=== PATIENT | female | born 1935 | race Caucasian/White ===

== ENCOUNTER → 2023-07-08 12:59 | Outpatient (REF) | payer OTHER, SELFPAY | LOC: WOUND 12:59 | PROVIDERS: ATTENDING PHYSICIAN Surgery; FAMILY PHYSICIAN Internal Medicine | DX: I70.248 Atherosclerosis of native arteries of left leg with ulceration of other part of lower leg (principal); L97.822 Non-pressure chronic ulcer of other part of left lower leg with fat layer exposed; I87.2 Venous insufficiency (chronic) (peripheral); I48.0 Paroxysmal atrial fibrillation; N18.31 Chronic kidney disease, stage 3a | CPT/HCPCS: 11042; 99204 ==

== ENCOUNTER → 2023-07-09 10:51 | Outpatient (REF) | payer OTHER, SELFPAY | LOC: RAD 10:51 | PROVIDERS: ATTENDING PHYSICIAN Surgery; FAMILY PHYSICIAN Internal Medicine | DX: I70.248 Atherosclerosis of native arteries of left leg with ulceration of other part of lower leg (principal); I73.9 Peripheral vascular disease, unspecified | CPT/HCPCS: 93922; 93925 ==

== ENCOUNTER → 2023-07-15 14:33 | Outpatient (REF) | payer OTHER, SELFPAY | LOC: WOUND 14:33 | PROVIDERS: ATTENDING PHYSICIAN Surgery; FAMILY PHYSICIAN Internal Medicine | DX: L97.822 Non-pressure chronic ulcer of other part of left lower leg with fat layer exposed (principal); I73.9 Peripheral vascular disease, unspecified; I87.2 Venous insufficiency (chronic) (peripheral); I48.0 Paroxysmal atrial fibrillation; N18.31 Chronic kidney disease, stage 3a | CPT/HCPCS: 11042 ==

== ENCOUNTER → 2023-07-19 13:30 | Outpatient (REF) | payer OTHER, SELFPAY | LOC: HWRAD 13:30 | PROVIDERS: ATTENDING PHYSICIAN Surgery; FAMILY PHYSICIAN Internal Medicine | DX: I70.248 Atherosclerosis of native arteries of left leg with ulceration of other part of lower leg (principal); I87.2 Venous insufficiency (chronic) (peripheral) | CPT/HCPCS: 93970 ==

== ENCOUNTER → 2023-07-22 14:47 | Outpatient (REF) | payer OTHER, SELFPAY | LOC: WOUND 14:47 | PROVIDERS: ATTENDING PHYSICIAN Surgery; FAMILY PHYSICIAN Internal Medicine | DX: L97.822 Non-pressure chronic ulcer of other part of left lower leg with fat layer exposed (principal); I73.9 Peripheral vascular disease, unspecified; I87.2 Venous insufficiency (chronic) (peripheral); I48.0 Paroxysmal atrial fibrillation; N18.31 Chronic kidney disease, stage 3a | CPT/HCPCS: 11042 ==

== ENCOUNTER → 2023-07-24 14:58 | Outpatient (REF) | payer OTHER, SELFPAY | LOC: WOUND 14:58 | PROVIDERS: ATTENDING PHYSICIAN Surgery; FAMILY PHYSICIAN Internal Medicine | DX: L97.822 Non-pressure chronic ulcer of other part of left lower leg with fat layer exposed (principal); I73.9 Peripheral vascular disease, unspecified; I87.2 Venous insufficiency (chronic) (peripheral); I48.0 Paroxysmal atrial fibrillation; N18.31 Chronic kidney disease, stage 3a | CPT/HCPCS: 29580 ==

== ENCOUNTER → 2023-07-29 14:11 | Outpatient (REF) | payer OTHER, SELFPAY | LOC: WOUND 14:11 | PROVIDERS: ATTENDING PHYSICIAN Surgery; FAMILY PHYSICIAN Internal Medicine | DX: L97.822 Non-pressure chronic ulcer of other part of left lower leg with fat layer exposed (principal); I73.9 Peripheral vascular disease, unspecified; I87.2 Venous insufficiency (chronic) (peripheral); I48.0 Paroxysmal atrial fibrillation; N18.31 Chronic kidney disease, stage 3a | CPT/HCPCS: 11042 ==

== ENCOUNTER → 2023-08-05 14:20 | Outpatient (REF) | payer OTHER, SELFPAY | LOC: WOUND 14:20 | PROVIDERS: ATTENDING PHYSICIAN Surgery; FAMILY PHYSICIAN Internal Medicine | DX: L97.822 Non-pressure chronic ulcer of other part of left lower leg with fat layer exposed (principal); I73.9 Peripheral vascular disease, unspecified; I87.2 Venous insufficiency (chronic) (peripheral); I48.0 Paroxysmal atrial fibrillation; N18.31 Chronic kidney disease, stage 3a | CPT/HCPCS: 11042 ==

== ENCOUNTER → 2023-08-12 14:19 | Outpatient (REF) | payer OTHER, SELFPAY | LOC: WOUND 14:19 | PROVIDERS: ATTENDING PHYSICIAN Surgery; FAMILY PHYSICIAN Internal Medicine | DX: L97.822 Non-pressure chronic ulcer of other part of left lower leg with fat layer exposed (principal); I73.9 Peripheral vascular disease, unspecified; I87.2 Venous insufficiency (chronic) (peripheral); I48.0 Paroxysmal atrial fibrillation; N18.31 Chronic kidney disease, stage 3a | CPT/HCPCS: 11042 ==

== ENCOUNTER → 2023-08-14 14:28 | Outpatient (REF) | payer OTHER, SELFPAY | LOC: WOUND 14:28 | PROVIDERS: ATTENDING PHYSICIAN Surgery; FAMILY PHYSICIAN Internal Medicine | DX: L97.822 Non-pressure chronic ulcer of other part of left lower leg with fat layer exposed (principal); I73.9 Peripheral vascular disease, unspecified; I87.2 Venous insufficiency (chronic) (peripheral); I48.0 Paroxysmal atrial fibrillation; N18.31 Chronic kidney disease, stage 3a | CPT/HCPCS: 29580 ==

== ENCOUNTER → 2023-08-19 14:34 | Outpatient (REF) | payer OTHER, SELFPAY | LOC: WOUND 14:34 | PROVIDERS: ATTENDING PHYSICIAN Surgery; FAMILY PHYSICIAN Internal Medicine | DX: L97.822 Non-pressure chronic ulcer of other part of left lower leg with fat layer exposed (principal); L97.412 Non-pressure chronic ulcer of right heel and midfoot with fat layer exposed; I73.9 Peripheral vascular disease, unspecified; I87.2 Venous insufficiency (chronic) (peripheral); I48.0 Paroxysmal atrial fibrillation; N18.31 Chronic kidney disease, stage 3a | CPT/HCPCS: 99213 ==

== ENCOUNTER 2023-08-27 06:55 | Day surgery (SDC) | payer OTHER, SELFPAY ==
[2023-08-22 13:54] VITALS: BMI 36.3
[2023-08-22 14:24] LABS: % Basophils 0.8 % (0-2); % Immature Granulocytes 0.3 % (0-0.5); % Lymphocytes 17.1 % (20.5-51.1); % Monocytes 8.6 % (1.7-9.3); % Neutrophils 68.2 % (42.2-75.2); Absolute Basophils 0.1 10^3/uL (0-0.2); Absolute Eosinophils 0.3 10^3/uL (0-0.7); Absolute Lymphocytes 1.1 10^3/uL (1.2-3.4); Absolute Monocytes 0.6 10^3/uL (0.1-0.6); Absolute Neutrophils 4.4 10^3/uL (1.4-6.5); Hematocrit 31.7 % (37.0-47.0); Hemoglobin 9.7 g/dL (12.0-16.0); Mean Corp Hgb Conc. 30.6 g/dL (33.0-37.0); Mean Corpuscular Hgb 28.7 pg (27.0-31.0); Mean Corpuscular Volume 93.8 fL (81.0-99.0); Mean Platelet Volume 8.5 fL (7.4-10.4); Nucleated Red Blood Cells % 0 %; Platelet Count 233 10^3/uL (130-400); Red Blood Cell Count 3.38 10^6/uL (4.20-5.40); White Blood Cell Count 6.4 10^3/uL (4.8-10.8)
[2023-08-22 14:35] LABS: APTT 41.7 Sec (23.4-35.0)
[2023-08-22 14:53] LABS: INR 1.79; PT 20.9 Sec (11.4-14.6)
[2023-08-22 15:18] LABS: Blood Urea Nitrogen 25 mg/dl (7-17); Calcium 9.8 mg/dl (8.4-10.2); Carbon Dioxide 19 mmol/L (22-30); Chloride 108 mmol/L (98-107); Estimated Creatinine Clearance 22 ml/min; Glucose 107 mg/dl (70-99); Potassium 4.3 mmol/L (3.5-5.1); Sodium 138 mmol/L (135-145); eGFR 26.93
--- NOTE | 2023-08-22 15:37 | PTCARENOTE ---
Hgb 9.7 and INR 1.79 both collected today; Renea at 's office was notified.
[2023-08-27] VITALS (20 sets, daily range): BP systolic 12–155; BP diastolic 47–96
--- NOTE | 2023-08-27 08:35 | W.SUR.PREOP ---
Pre-Operative Surgical Note
-
I have examined this patient prior to the performance of the scheduled procedure.
The patient's condition is unchanged from the time of the current History and
Physical and the patient is able to undergo the scheduled procedure.
--- NOTE | 2023-08-27 09:24 | W.IMMPOSTOP ---
Surgical Immed Post Op Note
-
Primary Surgeon: Dr. Andre Ochoa III, MD
Assisting Surgeon: Dr. Everett Spicer MD, PhD (PGY-1)
Pre-op Diagnosis: Chronic venous insufficiency with poorly healing wounds on left lower extremity sargent and right lower extremity foot
Post-op Diagnosis: Chronic venous insufficiency with poorly healing wounds on left lower extremity sargent and right lower extremity foot
Procedure Performed: Diagnostic arteriogram
Anesthesia Type: MAC
Specimen / Cultures: None
Estimated Blood Loss: Minimal
Complications: None
Operative Findings: The patient was brought to the OR and placed in the supine position. Following anesthesia, the patient was prepped and draped in usual sterile fashion. Ultrasound guidance was used to identify the right common femoral artery.
C-arm was used to identify the inferior and superior borders of the femoral head, which were marked at the skin level. Micropuncture needle was used to access the right common femoral artery. This was upsized to a 5-martiniquais sheath over a [employer] Stores[employer]
wire. Cano's hook catheter was advanced into the distal abdominal aorta-iliac bifurcation over wire. The contralateral iliofemoral system was selection. Diagnostic arteriogram demonstrated a patent left iliofemoral system and left SFA and
profunda arteries. There was some area of mild focal narrowing in the proximal left AT artery, but good three vessel run off. The Cano's hook catheter was removed and a diagnostic arteriogram of the right lower extremity vessels was performed
through the 5-martiniquais sheath. The right iliofemoral system was patent, as well as the right SFA and profunda arteries. Distally, there were some areas of focal stenosis in the proximal right AT artery. There was 2 vessel run off (AT and peroneal) as
the right PT narrowed and occluded distally. However, this area was supplied by collateral retrograde flow from the dorsalis pedis. At the conclusion of the case, the 5-martiniquais sheath was removed and manual occlusive pressure was held for 20 minutes.
Doppler pulses were noted in DP/PT bilaterally. The patient was transferred to the PACU in stable condition.
--- NOTE | 2023-08-27 10:34 | TRANSFER ---
Patient transferred back to senior laboratory technician. Bedside rt groin check and B/L lower extremity pulses checked and present with Doppler. Report to Mike. Carolina Oswald RN BSN.
--- NOTE | 2023-08-27 12:54 | OR.RPT ---
Operative Report
Operative Report
Date of Operation: 08/27/2023
Pre Op Diagnosis:
1.) Nonhealing left lower extremity wounds
2.) New right dorsal foot wound
Post Op Diagnosis:
1.) Nonhealing left lower extremity wounds
2.) New right dorsal foot wound
Procedure:
1.) Selective catheterization of second-order lower extremity artery
2.) Diagnostic aortobiiliac arteriogram
3.) Diagnostic BILATERAL lower extremity arteriograms
4.) Ultrasound-guided percutaneous access to the right common femoral artery
Surgeon: Andre Ochoa III, MD
Parts Delivery Driver: Everett Spicer MD PhD, PGY1
Anesthesia: Sedation with local
Complications: None
Estimated Blood Loss: Less than 20 cc
History and Indications for Procedure: 87-year-old female with nonhealing bilateral lower extremity wounds.
Procedure in Detail: Penny Lacus was correctly identified and placed supine on the operating table. After adequate induction of anesthesia the bilateral groins were prepped and draped in the usual sterile fashion. A timeout was performed with the
nursing and anesthesia staff confirming the patient's identity as well as the nature and laterality of the procedure.
The right common femoral artery was identified under ultrasound guidance. The artery was patent. The superior and inferior aspects of the femoral head were identified with radiographic guidance and marked at the skin level. The proposed puncture
site was infiltrated with local anesthesia. We saved a copy of the ultrasound image to the medical record. Under ultrasound guidance we accessed the right common femoral artery with a micropuncture needle and upsized to a 5 Fr sheath over a Nuikuson
wire. The wire and a Shepheremotion.me hook flush catheter were advanced into the distal abdominal aorta and a diagnostic aorto-biiliac arteriogram was performed:
AORTO-ILIAC ARTERIOGRAM:
Aorta: Patent with no significant stenosis identified
Right common iliac artery: Patent with no significant stenosis identified
Right external iliac artery: Patent with no significant stenosis identified
Left common iliac artery: Patent with no significant stenosis identified
Left external iliac artery: Patent with no significant stenosis identified
Under roadmap guidance using a Glidewire and the CipherMax hook catheter we selected the left common iliac artery and then the external iliac artery. A catheter was tracked up and over the aortic bifurcation and placed in the left common femoral
artery. A diagnostic left lower extremity arteriogram was then performed which demonstrated the following:
LEFT LOWER EXTREMITY:
Common femoral artery: Patent with no significant stenosis identified
Profunda femoral artery: Patent with no significant stenosis identified
Superficial femoral artery: Scattered calcification. Patent with no significant stenosis identified
Popliteal artery: Scattered calcification. Patent with no significant stenosis identified
Anterior tibial artery: Patent. Mild focal stenosis proximally. Widely patent distally with no stenosis identified.
Tibioperoneal trunk: Patent with no significant stenosis identified
Peroneal artery: Diminutive but patent to the ankle
Posterior tibial artery: Diffusely calcified. Patent. Mid to distal artery with focal scattered segmental stenoses.
Satisfied with this diagnostic result I then pulled the catheter from the sheath. A runoff arteriogram of the right lower extremity was then performed through the sheath.
RIGHT LOWER EXTREMITY:
Common femoral artery: Patent with no significant stenosis identified
Profunda femoral artery: Patent with no significant stenosis identified
Superficial femoral artery: Scattered calcification.Patent with no significant stenosis identified
Popliteal artery: Scattered calcification.Patent with no significant stenosis identified
Anterior tibial artery: Patent. Focal areas of high-grade segmental stenosis identified in the distal anterior tibial near the ankle
Tibioperoneal trunk: Patent with no significant stenosis identified
Peroneal artery: Patent.
Posterior tibial artery: Patent proximally and mid. Occluded distally. Retrograde filling of the plantar arteries is identified through a patent pedal arch.
The patient tolerated the procedure well and was taken to the recovery area in stable condition.
Attestation: I was present and responsible for the entire procedure.
Signed:
Andre Ochoa III, MD
[facility] Surgery
[phone] (swnk)
== END 2023-08-27 16:00 | disposition home or self-care (01) ==
LOC: CATH 06:55
PROVIDERS: ATTENDING PHYSICIAN Surgery Vascular Surgery; FAMILY PHYSICIAN Internal Medicine; OTHER PHYSICIAN Internal Medicine
DX: I70.202 Unspecified atherosclerosis of native arteries of extremities, left leg (principal); I87.2 Venous insufficiency (chronic) (peripheral); I70.209 Unspecified atherosclerosis of native arteries of extremities, unspecified extremity
CPT/HCPCS: 36246; 75625; 75716; 36415; 80048; 85025; 85610; 85730; 93005; C1769; C1894; Q9967

== ENCOUNTER → 2023-09-02 14:24 | Outpatient (REF) | payer OTHER, SELFPAY | LOC: WOUND 14:24 | PROVIDERS: ATTENDING PHYSICIAN Surgery; FAMILY PHYSICIAN Internal Medicine | DX: L97.822 Non-pressure chronic ulcer of other part of left lower leg with fat layer exposed (principal); L97.412 Non-pressure chronic ulcer of right heel and midfoot with fat layer exposed; I73.9 Peripheral vascular disease, unspecified; I87.2 Venous insufficiency (chronic) (peripheral); I48.0 Paroxysmal atrial fibrillation; N18.31 Chronic kidney disease, stage 3a | CPT/HCPCS: 11042 ==

== ENCOUNTER → 2023-09-10 14:03 | Outpatient (REF) | payer OTHER, SELFPAY | LOC: WOUND 14:03 | PROVIDERS: ATTENDING PHYSICIAN Surgery; FAMILY PHYSICIAN Internal Medicine | DX: L97.822 Non-pressure chronic ulcer of other part of left lower leg with fat layer exposed (principal); L97.412 Non-pressure chronic ulcer of right heel and midfoot with fat layer exposed; I73.9 Peripheral vascular disease, unspecified; I87.2 Venous insufficiency (chronic) (peripheral); I48.0 Paroxysmal atrial fibrillation; N18.31 Chronic kidney disease, stage 3a | CPT/HCPCS: 11042 ==

== ENCOUNTER → 2023-09-16 14:39 | Outpatient (REF) | payer OTHER, SELFPAY | LOC: WOUND 14:39 | PROVIDERS: ATTENDING PHYSICIAN Surgery; FAMILY PHYSICIAN Internal Medicine | DX: L97.822 Non-pressure chronic ulcer of other part of left lower leg with fat layer exposed (principal); L97.412 Non-pressure chronic ulcer of right heel and midfoot with fat layer exposed; I73.9 Peripheral vascular disease, unspecified; I87.2 Venous insufficiency (chronic) (peripheral); I48.0 Paroxysmal atrial fibrillation; N18.31 Chronic kidney disease, stage 3a | CPT/HCPCS: 29580 ==

== ENCOUNTER → 2023-09-24 14:33 | Outpatient (REF) | payer OTHER, SELFPAY | LOC: WOUND 14:33 | PROVIDERS: ATTENDING PHYSICIAN Surgery; FAMILY PHYSICIAN Internal Medicine | DX: L97.822 Non-pressure chronic ulcer of other part of left lower leg with fat layer exposed (principal); L97.412 Non-pressure chronic ulcer of right heel and midfoot with fat layer exposed; I73.9 Peripheral vascular disease, unspecified; I87.2 Venous insufficiency (chronic) (peripheral); I48.0 Paroxysmal atrial fibrillation; N18.31 Chronic kidney disease, stage 3a | CPT/HCPCS: 29581; 99213 ==

== ENCOUNTER → 2023-09-26 12:01 | Outpatient (REF) | payer OTHER, SELFPAY | LOC: WOUND 12:01 | PROVIDERS: ATTENDING PHYSICIAN Surgery; FAMILY PHYSICIAN Internal Medicine | DX: L97.822 Non-pressure chronic ulcer of other part of left lower leg with fat layer exposed (principal); L97.412 Non-pressure chronic ulcer of right heel and midfoot with fat layer exposed; I73.9 Peripheral vascular disease, unspecified; I87.2 Venous insufficiency (chronic) (peripheral) | CPT/HCPCS: 29581 ==

== ENCOUNTER → 2023-10-01 14:16 | Outpatient (REF) | payer OTHER, SELFPAY | LOC: WOUND 14:16 | PROVIDERS: ATTENDING PHYSICIAN Surgery; FAMILY PHYSICIAN Internal Medicine | DX: L97.822 Non-pressure chronic ulcer of other part of left lower leg with fat layer exposed (principal); L97.412 Non-pressure chronic ulcer of right heel and midfoot with fat layer exposed; I73.9 Peripheral vascular disease, unspecified; I87.2 Venous insufficiency (chronic) (peripheral); I48.0 Paroxysmal atrial fibrillation; N18.31 Chronic kidney disease, stage 3a | CPT/HCPCS: 11042 ==

== ENCOUNTER → 2023-10-08 14:27 | Outpatient (REF) | payer OTHER, SELFPAY | LOC: WOUND 14:27 | PROVIDERS: ATTENDING PHYSICIAN Surgery | DX: L97.822 Non-pressure chronic ulcer of other part of left lower leg with fat layer exposed (principal); L97.412 Non-pressure chronic ulcer of right heel and midfoot with fat layer exposed; I73.9 Peripheral vascular disease, unspecified; I87.2 Venous insufficiency (chronic) (peripheral) | CPT/HCPCS: 11042; 29580 ==

== ENCOUNTER → 2023-10-14 14:36 | Outpatient (REF) | payer OTHER, SELFPAY | LOC: WOUND 14:36 | PROVIDERS: ATTENDING PHYSICIAN Surgery; FAMILY PHYSICIAN Internal Medicine | DX: L97.822 Non-pressure chronic ulcer of other part of left lower leg with fat layer exposed (principal); L97.412 Non-pressure chronic ulcer of right heel and midfoot with fat layer exposed; L73.9 Follicular disorder, unspecified; L87.2 Elastosis perforans serpiginosa; I48.0 Paroxysmal atrial fibrillation; N18.31 Chronic kidney disease, stage 3a | CPT/HCPCS: 11042; 29580 ==

== ENCOUNTER → 2023-10-23 13:51 | Outpatient (REF) | payer OTHER, SELFPAY | LOC: WOUND 13:51 | PROVIDERS: ATTENDING PHYSICIAN Surgery; FAMILY PHYSICIAN Internal Medicine | DX: L97.822 Non-pressure chronic ulcer of other part of left lower leg with fat layer exposed (principal); L97.412 Non-pressure chronic ulcer of right heel and midfoot with fat layer exposed; I73.9 Peripheral vascular disease, unspecified; I87.2 Venous insufficiency (chronic) (peripheral); I48.0 Paroxysmal atrial fibrillation; N18.31 Chronic kidney disease, stage 3a | CPT/HCPCS: 29580 ==

== ENCOUNTER → 2023-10-29 14:13 | Outpatient (REF) | payer OTHER, SELFPAY | LOC: WOUND 14:13 | PROVIDERS: ATTENDING PHYSICIAN Surgery | DX: L97.822 Non-pressure chronic ulcer of other part of left lower leg with fat layer exposed (principal); L97.412 Non-pressure chronic ulcer of right heel and midfoot with fat layer exposed; I73.9 Peripheral vascular disease, unspecified; I87.2 Venous insufficiency (chronic) (peripheral); I48.0 Paroxysmal atrial fibrillation; N18.31 Chronic kidney disease, stage 3a | CPT/HCPCS: 11042 ==

== ENCOUNTER → 2023-11-05 14:21 | Outpatient (REF) | payer OTHER, SELFPAY | LOC: WOUND 14:21 | PROVIDERS: ATTENDING PHYSICIAN Surgery; FAMILY PHYSICIAN Internal Medicine | DX: L97.822 Non-pressure chronic ulcer of other part of left lower leg with fat layer exposed (principal); L97.412 Non-pressure chronic ulcer of right heel and midfoot with fat layer exposed; I73.9 Peripheral vascular disease, unspecified; I87.2 Venous insufficiency (chronic) (peripheral); I48.0 Paroxysmal atrial fibrillation; N18.31 Chronic kidney disease, stage 3a | CPT/HCPCS: 99213 ==

== ENCOUNTER → 2023-11-12 14:15 | Outpatient (REF) | payer OTHER, SELFPAY | LOC: WOUND 14:15 | PROVIDERS: ATTENDING PHYSICIAN Surgery; FAMILY PHYSICIAN Internal Medicine | DX: L97.822 Non-pressure chronic ulcer of other part of left lower leg with fat layer exposed (principal); L97.412 Non-pressure chronic ulcer of right heel and midfoot with fat layer exposed; I73.9 Peripheral vascular disease, unspecified; I87.2 Venous insufficiency (chronic) (peripheral); I48.0 Paroxysmal atrial fibrillation; N18.31 Chronic kidney disease, stage 3a | CPT/HCPCS: 11042 ==

== ENCOUNTER → 2023-11-19 14:16 | Outpatient (REF) | payer OTHER, SELFPAY | LOC: WOUND 14:16 | PROVIDERS: ATTENDING PHYSICIAN Surgery; FAMILY PHYSICIAN Internal Medicine | DX: L97.822 Non-pressure chronic ulcer of other part of left lower leg with fat layer exposed (principal); L97.412 Non-pressure chronic ulcer of right heel and midfoot with fat layer exposed; I73.9 Peripheral vascular disease, unspecified; I87.2 Venous insufficiency (chronic) (peripheral); I48.0 Paroxysmal atrial fibrillation; N18.31 Chronic kidney disease, stage 3a | CPT/HCPCS: 99212 ==

== ENCOUNTER → 2023-12-10 14:30 | Outpatient (REF) | payer OTHER, SELFPAY | LOC: WOUND 14:30 | PROVIDERS: ATTENDING PHYSICIAN Surgery; FAMILY PHYSICIAN Internal Medicine | DX: L97.822 Non-pressure chronic ulcer of other part of left lower leg with fat layer exposed (principal); L97.412 Non-pressure chronic ulcer of right heel and midfoot with fat layer exposed; I73.9 Peripheral vascular disease, unspecified; I87.2 Venous insufficiency (chronic) (peripheral); I48.0 Paroxysmal atrial fibrillation; N18.31 Chronic kidney disease, stage 3a | CPT/HCPCS: 99212 ==

== ENCOUNTER → 2023-12-31 14:21 | Outpatient (REF) | payer OTHER, SELFPAY | LOC: WOUND 14:21 | PROVIDERS: ATTENDING PHYSICIAN Surgery; FAMILY PHYSICIAN Internal Medicine | DX: L97.822 Non-pressure chronic ulcer of other part of left lower leg with fat layer exposed (principal); L97.412 Non-pressure chronic ulcer of right heel and midfoot with fat layer exposed; I73.9 Peripheral vascular disease, unspecified; I87.2 Venous insufficiency (chronic) (peripheral); I48.0 Paroxysmal atrial fibrillation; N18.31 Chronic kidney disease, stage 3a | CPT/HCPCS: 99212 ==

== ENCOUNTER 2024-01-07 08:07 | Day surgery (SDC) | payer OTHER, SELFPAY ==
[2024-01-07] VITALS (20 sets, daily range): BP systolic 91–149; BP diastolic 53–94; BMI 37.8
[2024-01-07 08:35] LABS: Hematocrit 28.8 % (37.0-47.0); Hemoglobin 9.2 g/dL (12.0-16.0); Mean Corp Hgb Conc. 31.9 g/dL (33.0-37.0); Mean Corpuscular Hgb 29.4 pg (27.0-31.0); Platelet Count 191 10^3/uL (130-400); Red Blood Cell Count 3.13 10^6/uL (4.20-5.40); Red Cell Dist. Width 15.2 % (11.5-14.5); White Blood Cell Count 7.5 10^3/uL (4.8-10.8)
[2024-01-07 08:46] LABS: INR 1.18; PT 14.8 Sec (11.4-14.6)
[2024-01-07 08:46] LABS: Blood Urea Nitrogen 29 mg/dl (7-17); Calcium 9.3 mg/dl (8.4-10.2); Carbon Dioxide 20 mmol/L (22-30); Chloride 107 mmol/L (98-107); Glucose 93 mg/dl (70-99); Potassium 4.4 mmol/L (3.5-5.1); Sodium 138 mmol/L (135-145); eGFR 21.04
[2024-01-07 08:47] LABS: APTT 29.7 Sec (23.4-35.0)
[2024-01-07] MEDS: NSS 1000 IV (13:05)
--- NOTE | 2024-01-07 15:12 | OR.RPT ---
Operative Report
Operative Report
Date of Operation: 01/07/2024
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
Procedure:
1.) Intravascular lithotripsy to right dorsalis pedis artery and anterior tibial artery (3 mm x 80 mm E8 shockwave balloon)
2.) Balloon angioplasty of right dorsalis pedis artery (2.5 mm x 40 mm angioplasty balloon)
3.) Diagnostic aortobiiliac arteriogram
4.) Diagnostic right lower extremity arteriogram
5.) Ultrasound-guided percutaneous access to the left common femoral artery
Surgeon: Andre Ochoa III, MD
Test Engineering Manager: Sepideh Juarez MD PGY-8
Anesthesia: Sedation with local
Fluoroscopy:
36.6 min
173 mGy
57.09 Gy.cm2
Complications: None
Estimated Blood Loss: 20 cc
History and Indications for Procedure: 88-year-old female with chronic limb threatening ischemia of the right lower extremity manifested by a nonhealing dorsal foot wound.
Procedure in Detail: Penny Joshua was correctly identified and placed supine on the operating table. After adequate induction of anesthesia the bilateral groins were prepped and draped in the usual sterile fashion. A timeout was performed with the
nursing and anesthesia staff confirming the patient's identity as well as the nature and laterality of the procedure.
The left common femoral artery was identified under ultrasound guidance. The artery was patent. The superior and inferior aspects of the femoral head were identified with radiographic guidance and marked at the skin level. The proposed puncture site
was infiltrated with local anesthesia. We saved a copy of the ultrasound image to the medical record. Under ultrasound guidance we accessed the left common femoral artery with a micropuncture needle and upsized to a 5 Fr sheath over a Bentson wire.
The wire and a ShepherHiperos hook flush catheter were advanced into the distal abdominal aorta and a diagnostic vntxa-za-fthad arteriogram was performed:
AORTO-ILIAC ARTERIOGRAM:
Aorta: Peripherally calcified but patent with no stenosis identified
Right common iliac artery: Patent with no stenosis identified
Right external iliac artery: Patent with no stenosis identified
Left common iliac artery: Patent with no stenosis identified
Left external iliac artery: Patent with no stenosis identified
Under roadmap guidance using a Glidewire and the SheMultiplicomerHiperos hook catheter we selected the right common iliac artery and then the external iliac artery. A catheter was tracked up and over the aortic bifurcation and placed in the distal external iliac
artery. A diagnostic right lower extremity arteriogram was then performed which demonstrated the following:
RIGHT LOWER EXTREMITY:
Common femoral artery: Patent with no stenosis identified
Profunda femoral artery: Patent with no stenosis identified
Superficial femoral artery: Patent with no stenosis identified
Popliteal artery: Patent with no stenosis identified
Anterior tibial artery: Patent. Focal stenosis identified in the proximal aspect as well as the distal artery near the ankle. Focal high-grade stenoses identified in the dorsalis pedis artery
Tibioperoneal trunk: Patent with no stenosis identified
Peroneal artery: Patent with no stenosis identified. Becomes diminutive distally at the ankle
Posterior tibial artery: Patent. Occludes distally near the ankle with no distal reconstitution identified
ENDOVASCULAR INTERVENTION: Systemic heparin was administered. Superficial femoral artery was selected with the Glidewire and kay's the catheter. Exchanged out for a 5 Fr 70 cm sheath over a Storq wire. Selected the anterior tibial artery
under roadmap guidance with Quickcross catheter and glidewire. The stenoses in the anterior tibial artery and dorsalis pedis artery were crossed with a Quickcross and Glidewire. The wire and catheter were advanced into the distal dorsalis pedis
artery and subtraction angio confirmed proper position in the true lumen. Exchanged out for a Stetson ST 0.014 wire. Due to the calcified nature of the arterial disease and in an effort to modify the calcium to achieve maximum luminal gain with
endovascular intervention I elected to proceed with intravascular lithotripsy. A 3 mm x 80 mm E8 advance shockwave balloon was advanced and positioned in the dorsalis pedis artery across the stenosis under roadmap guidance dorsalis pedis and
anterior tibial artery. Alternating rounds of lithotripsy pulse delivery at sub-nominal pressure and angioplasty at nominal pressure was performed across the stenoses. In between rounds of pulse delivery and angioplasty the balloon was deflated and
repositioned under roadmap guidance. All 400 pulses were delivered. Subsequent arteriogram demonstrated an excellent technical result in the anterior tibial artery. There was some residual stenosis versus spasm in the dorsalis pedis artery. I
treated this area with a 2.5 mm x 40 mm angioplasty balloon, inflating for 2 minutes at each treatment segment.
COMPLETION ARTERIOGRAM: Excellent technical result. Widely patent anterior tibial artery and dorsalis pedis artery with brisk flow into the foot and no significant residual stenosis identified.
Satisfied with this result we concluded the procedure. The sheath tip was pulled back into the left external iliac artery. The wire was removed from the sheath. Protamine was administered.
The patient tolerated the procedure well and was taken to the recovery area in stable condition.
Attestation: I was present and responsible for the entire procedure.
Signed:
Andre Ochoa III, MD
[facility] Surgery
[phone] (hjza)
[2024-01-07 15:24] LABS: ALT (SGPT) 19 U/L (0-35); AST (SGOT) 29 U/L (14-36); Alkaline Phosphatase 46 U/L (38-126); Total Bilirubin 0.3 mg/dl (0.2-1.3); Total Protein 6.6 g/dl (6.3-8.2)
[2024-01-07] MEDS: ASPIR LOW (ENTERIC COATED) 81 MG PO (15:46)
--- NOTE | 2024-01-07 16:47 | PTCARENOTE ---
Rec'd report from KAREL Rust. Pt awake, alert, & oriented x 3, pt BEL[place]KI. Pt's daughter at bedside, discharge information given with good verbal feedback. Pt's Meeta REED, evi signal present to L DP & PT. Pt due to get OOB at 1730. Will
monitor closely.
[2024-01-07] MEDS: TYLENOL 650 MG PO (17:54)
--- NOTE | 2024-01-07 17:58 | PTCARENOTE ---
Pt OOB to chair, pt dressed and urostomy drained for 400 ml cloudy yellow urine. Pt's L groin WNL, pt and daughter understand discharge instructions. Pt discharged to home with daughter.
== END 2024-01-07 18:00 | disposition home or self-care (01) ==
LOC: CATH 08:07
PROVIDERS: ATTENDING PHYSICIAN Surgery Vascular Surgery; FAMILY PHYSICIAN Internal Medicine; OTHER PHYSICIAN Internal Medicine
DX: I70.235 Atherosclerosis of native arteries of right leg with ulceration of other part of foot (principal); L97.519 Non-pressure chronic ulcer of other part of right foot with unspecified severity; I10 Essential (primary) hypertension; I47.10 Supraventricular tachycardia, unspecified; Z79.899 Other long term (current) drug therapy; Z79.01 Long term (current) use of anticoagulants; Z79.890 Hormone replacement therapy
CPT/HCPCS: C9772; 75625; 75710; 76937; 80053; 82248; 85027; 85610; 85730; C1725; C1769; C1894; C9766; Q9967

== ENCOUNTER → 2024-01-21 14:15 | Outpatient (REF) | payer OTHER, SELFPAY | LOC: WOUND 14:15 | PROVIDERS: ATTENDING PHYSICIAN Surgery; FAMILY PHYSICIAN Internal Medicine | DX: L97.412 Non-pressure chronic ulcer of right heel and midfoot with fat layer exposed (principal); L97.512 Non-pressure chronic ulcer of other part of right foot with fat layer exposed; I73.9 Peripheral vascular disease, unspecified; I87.2 Venous insufficiency (chronic) (peripheral); I48.0 Paroxysmal atrial fibrillation; N18.31 Chronic kidney disease, stage 3a | CPT/HCPCS: 11042 ==

== ENCOUNTER → 2024-01-28 14:47 | Outpatient (REF) | payer OTHER, SELFPAY | LOC: WOUND 14:47 | PROVIDERS: ATTENDING PHYSICIAN Surgery; FAMILY PHYSICIAN Internal Medicine | DX: L97.412 Non-pressure chronic ulcer of right heel and midfoot with fat layer exposed (principal); L97.512 Non-pressure chronic ulcer of other part of right foot with fat layer exposed; I73.9 Peripheral vascular disease, unspecified; N18.31 Chronic kidney disease, stage 3a | CPT/HCPCS: 11042 ==

== ENCOUNTER → 2024-01-31 12:50 | Outpatient (REF) | payer OTHER, SELFPAY | LOC: WOUND 12:50 | PROVIDERS: ATTENDING PHYSICIAN Surgery; FAMILY PHYSICIAN Internal Medicine | DX: L97.412 Non-pressure chronic ulcer of right heel and midfoot with fat layer exposed (principal); L97.512 Non-pressure chronic ulcer of other part of right foot with fat layer exposed; I73.9 Peripheral vascular disease, unspecified; I87.2 Venous insufficiency (chronic) (peripheral); I48.0 Paroxysmal atrial fibrillation; N18.31 Chronic kidney disease, stage 3a | CPT/HCPCS: 29580 ==

== ENCOUNTER → 2024-02-10 15:12 | Outpatient (REF) | payer OTHER, SELFPAY | LOC: WOUND 15:12 | PROVIDERS: ATTENDING PHYSICIAN Surgery; FAMILY PHYSICIAN Internal Medicine | DX: L97.412 Non-pressure chronic ulcer of right heel and midfoot with fat layer exposed (principal); L97.512 Non-pressure chronic ulcer of other part of right foot with fat layer exposed; I73.9 Peripheral vascular disease, unspecified; I87.2 Venous insufficiency (chronic) (peripheral); I48.0 Paroxysmal atrial fibrillation; N18.31 Chronic kidney disease, stage 3a | CPT/HCPCS: 11042 ==

== ENCOUNTER → 2024-02-24 10:57 | Outpatient (REF) | payer OTHER, SELFPAY | LOC: WOUND 10:57 | PROVIDERS: ATTENDING PHYSICIAN Surgery; FAMILY PHYSICIAN Internal Medicine | DX: L97.412 Non-pressure chronic ulcer of right heel and midfoot with fat layer exposed (principal); L97.512 Non-pressure chronic ulcer of other part of right foot with fat layer exposed; I73.9 Peripheral vascular disease, unspecified; I87.2 Venous insufficiency (chronic) (peripheral); I48.0 Paroxysmal atrial fibrillation; N18.31 Chronic kidney disease, stage 3a | CPT/HCPCS: 11042 ==

== ENCOUNTER → 2024-03-02 15:28 | Outpatient (REF) | payer OTHER, SELFPAY | LOC: WOUND 15:28 | PROVIDERS: ATTENDING PHYSICIAN Surgery; FAMILY PHYSICIAN Internal Medicine | DX: L97.412 Non-pressure chronic ulcer of right heel and midfoot with fat layer exposed (principal); L97.512 Non-pressure chronic ulcer of other part of right foot with fat layer exposed; I73.9 Peripheral vascular disease, unspecified; I87.2 Venous insufficiency (chronic) (peripheral); I48.0 Paroxysmal atrial fibrillation; N18.31 Chronic kidney disease, stage 3a | CPT/HCPCS: 11042 ==

== ENCOUNTER → 2024-03-09 14:10 | Outpatient (REF) | payer OTHER, SELFPAY | LOC: WOUND 14:10 | PROVIDERS: ATTENDING PHYSICIAN Surgery; FAMILY PHYSICIAN Internal Medicine | DX: L97.412 Non-pressure chronic ulcer of right heel and midfoot with fat layer exposed (principal); L97.512 Non-pressure chronic ulcer of other part of right foot with fat layer exposed; I73.9 Peripheral vascular disease, unspecified; I87.2 Venous insufficiency (chronic) (peripheral); I48.0 Paroxysmal atrial fibrillation; N18.31 Chronic kidney disease, stage 3a | CPT/HCPCS: 11042 ==

== ENCOUNTER → 2024-03-16 14:05 | Outpatient (REF) | payer OTHER, SELFPAY | LOC: WOUND 14:05 | PROVIDERS: ATTENDING PHYSICIAN Surgery; FAMILY PHYSICIAN Internal Medicine | DX: L97.412 Non-pressure chronic ulcer of right heel and midfoot with fat layer exposed (principal); L97.512 Non-pressure chronic ulcer of other part of right foot with fat layer exposed; I73.9 Peripheral vascular disease, unspecified; I87.2 Venous insufficiency (chronic) (peripheral); I48.0 Paroxysmal atrial fibrillation; N18.31 Chronic kidney disease, stage 3a | CPT/HCPCS: 11042 ==

== ENCOUNTER → 2024-03-23 13:37 | Outpatient (REF) | payer OTHER, SELFPAY | LOC: WOUND 13:37 | PROVIDERS: ATTENDING PHYSICIAN Surgery; FAMILY PHYSICIAN Internal Medicine | DX: L97.412 Non-pressure chronic ulcer of right heel and midfoot with fat layer exposed (principal); L97.512 Non-pressure chronic ulcer of other part of right foot with fat layer exposed; I73.9 Peripheral vascular disease, unspecified; I87.2 Venous insufficiency (chronic) (peripheral); I48.0 Paroxysmal atrial fibrillation; N18.31 Chronic kidney disease, stage 3a | CPT/HCPCS: 29581; 99213 ==

== ENCOUNTER → 2024-03-30 14:33 | Outpatient (REF) | payer OTHER, SELFPAY | LOC: WOUND 14:33 | PROVIDERS: ATTENDING PHYSICIAN Surgery; FAMILY PHYSICIAN Internal Medicine | DX: L97.412 Non-pressure chronic ulcer of right heel and midfoot with fat layer exposed (principal); L97.512 Non-pressure chronic ulcer of other part of right foot with fat layer exposed; I73.9 Peripheral vascular disease, unspecified; I87.2 Venous insufficiency (chronic) (peripheral); I48.0 Paroxysmal atrial fibrillation; N18.31 Chronic kidney disease, stage 3a | CPT/HCPCS: 11042 ==

== ENCOUNTER → 2024-04-06 14:06 | Outpatient (REF) | payer OTHER, SELFPAY | LOC: WOUND 14:06 | PROVIDERS: ATTENDING PHYSICIAN Surgery; FAMILY PHYSICIAN Internal Medicine | DX: L97.412 Non-pressure chronic ulcer of right heel and midfoot with fat layer exposed (principal); L97.512 Non-pressure chronic ulcer of other part of right foot with fat layer exposed; I73.9 Peripheral vascular disease, unspecified; I87.2 Venous insufficiency (chronic) (peripheral); I48.0 Paroxysmal atrial fibrillation; N18.31 Chronic kidney disease, stage 3a | CPT/HCPCS: 11042 ==

== ENCOUNTER → 2024-04-13 14:03 | Outpatient (REF) | payer OTHER, SELFPAY | LOC: WOUND 14:03 | PROVIDERS: ATTENDING PHYSICIAN Surgery; FAMILY PHYSICIAN Internal Medicine | DX: L97.412 Non-pressure chronic ulcer of right heel and midfoot with fat layer exposed (principal); L97.512 Non-pressure chronic ulcer of other part of right foot with fat layer exposed; I73.9 Peripheral vascular disease, unspecified; I87.2 Venous insufficiency (chronic) (peripheral); I48.0 Paroxysmal atrial fibrillation; N18.31 Chronic kidney disease, stage 3a | CPT/HCPCS: 11042; 97597 ==

== ENCOUNTER → 2024-04-20 14:05 | Outpatient (REF) | payer OTHER, SELFPAY | LOC: WOUND 14:05 | PROVIDERS: ATTENDING PHYSICIAN Surgery | DX: L97.412 Non-pressure chronic ulcer of right heel and midfoot with fat layer exposed (principal); L97.512 Non-pressure chronic ulcer of other part of right foot with fat layer exposed; I73.9 Peripheral vascular disease, unspecified; I87.2 Venous insufficiency (chronic) (peripheral); I48.0 Paroxysmal atrial fibrillation; N18.31 Chronic kidney disease, stage 3a | CPT/HCPCS: 97597 ==

== ENCOUNTER → 2024-04-27 14:23 | Outpatient (REF) | payer OTHER, SELFPAY | LOC: WOUND 14:23 | PROVIDERS: ATTENDING PHYSICIAN Surgery; FAMILY PHYSICIAN Internal Medicine | DX: L97.412 Non-pressure chronic ulcer of right heel and midfoot with fat layer exposed (principal); L97.512 Non-pressure chronic ulcer of other part of right foot with fat layer exposed; I73.9 Peripheral vascular disease, unspecified; I87.2 Venous insufficiency (chronic) (peripheral); I48.0 Paroxysmal atrial fibrillation; N18.31 Chronic kidney disease, stage 3a | CPT/HCPCS: 11042 ==

== ENCOUNTER → 2024-05-05 14:30 | Outpatient (REF) | payer OTHER, SELFPAY | LOC: WOUND 14:30 | PROVIDERS: ATTENDING PHYSICIAN Surgery; FAMILY PHYSICIAN Internal Medicine | DX: L97.412 Non-pressure chronic ulcer of right heel and midfoot with fat layer exposed (principal); L97.512 Non-pressure chronic ulcer of other part of right foot with fat layer exposed; I73.9 Peripheral vascular disease, unspecified; I87.2 Venous insufficiency (chronic) (peripheral); I48.0 Paroxysmal atrial fibrillation; N18.31 Chronic kidney disease, stage 3a | CPT/HCPCS: 97597 ==

== ENCOUNTER → 2024-05-12 14:17 | Outpatient (REF) | payer OTHER, SELFPAY | LOC: WOUND 14:17 | PROVIDERS: ATTENDING PHYSICIAN Surgery; FAMILY PHYSICIAN Internal Medicine | DX: L97.412 Non-pressure chronic ulcer of right heel and midfoot with fat layer exposed (principal); L97.512 Non-pressure chronic ulcer of other part of right foot with fat layer exposed; I73.9 Peripheral vascular disease, unspecified; I87.2 Venous insufficiency (chronic) (peripheral); I48.0 Paroxysmal atrial fibrillation; N18.31 Chronic kidney disease, stage 3a | CPT/HCPCS: 97597 ==

== ENCOUNTER → 2024-05-19 14:24 | Outpatient (REF) | payer OTHER, SELFPAY | LOC: WOUND 14:24 | PROVIDERS: ATTENDING PHYSICIAN Surgery; FAMILY PHYSICIAN Internal Medicine | DX: L97.412 Non-pressure chronic ulcer of right heel and midfoot with fat layer exposed (principal); L97.512 Non-pressure chronic ulcer of other part of right foot with fat layer exposed; I73.9 Peripheral vascular disease, unspecified; I87.2 Venous insufficiency (chronic) (peripheral); I48.0 Paroxysmal atrial fibrillation; N18.31 Chronic kidney disease, stage 3a | CPT/HCPCS: 29581; 99213 ==

== ENCOUNTER → 2024-05-25 14:11 | Outpatient (REF) | payer OTHER, SELFPAY | LOC: WOUND 14:11 | PROVIDERS: ATTENDING PHYSICIAN Surgery; FAMILY PHYSICIAN Internal Medicine | DX: L97.412 Non-pressure chronic ulcer of right heel and midfoot with fat layer exposed (principal); L97.512 Non-pressure chronic ulcer of other part of right foot with fat layer exposed; I73.9 Peripheral vascular disease, unspecified; I87.2 Venous insufficiency (chronic) (peripheral); I48.0 Paroxysmal atrial fibrillation; N18.31 Chronic kidney disease, stage 3a | CPT/HCPCS: 29581 ==

== ENCOUNTER → 2024-06-01 14:19 | Outpatient (REF) | payer OTHER, SELFPAY | LOC: WOUND 14:19 | PROVIDERS: ATTENDING PHYSICIAN Surgery; FAMILY PHYSICIAN Internal Medicine | DX: L97.412 Non-pressure chronic ulcer of right heel and midfoot with fat layer exposed (principal); L97.512 Non-pressure chronic ulcer of other part of right foot with fat layer exposed; I73.9 Peripheral vascular disease, unspecified; I87.2 Venous insufficiency (chronic) (peripheral); I48.0 Paroxysmal atrial fibrillation; N18.31 Chronic kidney disease, stage 3a | CPT/HCPCS: 29581; 99213 ==

== ENCOUNTER → 2024-06-08 14:35 | Outpatient (REF) | payer OTHER, SELFPAY | LOC: RAD 14:35 | PROVIDERS: ATTENDING PHYSICIAN Physician Assistant; FAMILY PHYSICIAN Internal Medicine | DX: I73.9 Peripheral vascular disease, unspecified (principal) | CPT/HCPCS: 93922; 93925 ==

== ENCOUNTER → 2024-06-09 14:27 | Outpatient (REF) | payer OTHER, SELFPAY | LOC: WOUND 14:27 | PROVIDERS: ATTENDING PHYSICIAN Surgery; FAMILY PHYSICIAN Internal Medicine | DX: L97.412 Non-pressure chronic ulcer of right heel and midfoot with fat layer exposed (principal); L97.512 Non-pressure chronic ulcer of other part of right foot with fat layer exposed; I73.9 Peripheral vascular disease, unspecified; I87.2 Venous insufficiency (chronic) (peripheral); I48.0 Paroxysmal atrial fibrillation; N18.31 Chronic kidney disease, stage 3a | CPT/HCPCS: 29581; 99213 ==

== ENCOUNTER → 2024-06-16 14:15 | Outpatient (REF) | payer OTHER, SELFPAY | LOC: WOUND 14:15 | PROVIDERS: ATTENDING PHYSICIAN Surgery; FAMILY PHYSICIAN Internal Medicine | DX: L97.412 Non-pressure chronic ulcer of right heel and midfoot with fat layer exposed (principal); I73.9 Peripheral vascular disease, unspecified; I87.2 Venous insufficiency (chronic) (peripheral); I48.0 Paroxysmal atrial fibrillation; N18.31 Chronic kidney disease, stage 3a | CPT/HCPCS: 97597 ==

== ENCOUNTER → 2024-06-22 14:09 | Outpatient (REF) | payer OTHER, SELFPAY | LOC: WOUND 14:09 | PROVIDERS: ATTENDING PHYSICIAN Surgery; FAMILY PHYSICIAN Internal Medicine | DX: L97.412 Non-pressure chronic ulcer of right heel and midfoot with fat layer exposed (principal); I73.9 Peripheral vascular disease, unspecified; I87.2 Venous insufficiency (chronic) (peripheral); I48.0 Paroxysmal atrial fibrillation; N18.31 Chronic kidney disease, stage 3a | CPT/HCPCS: 97597 ==

== ENCOUNTER → 2024-06-29 14:20 | Outpatient (REF) | payer OTHER, SELFPAY | LOC: WOUND 14:20 | PROVIDERS: ATTENDING PHYSICIAN Surgery; FAMILY PHYSICIAN Internal Medicine | DX: L97.412 Non-pressure chronic ulcer of right heel and midfoot with fat layer exposed (principal); I73.9 Peripheral vascular disease, unspecified; I87.2 Venous insufficiency (chronic) (peripheral); I48.0 Paroxysmal atrial fibrillation; N18.31 Chronic kidney disease, stage 3a | CPT/HCPCS: 97597 ==

== ENCOUNTER → 2024-07-06 14:04 | Outpatient (REF) | payer OTHER, SELFPAY | LOC: WOUND 14:04 | PROVIDERS: ATTENDING PHYSICIAN Surgery; FAMILY PHYSICIAN Internal Medicine | DX: L97.412 Non-pressure chronic ulcer of right heel and midfoot with fat layer exposed (principal); I73.9 Peripheral vascular disease, unspecified; I87.2 Venous insufficiency (chronic) (peripheral); I48.0 Paroxysmal atrial fibrillation; N18.31 Chronic kidney disease, stage 3a | CPT/HCPCS: 97597 ==

== ENCOUNTER → 2024-07-13 14:19 | Outpatient (REF) | payer OTHER, SELFPAY | LOC: WOUND 14:19 | PROVIDERS: ATTENDING PHYSICIAN Surgery; FAMILY PHYSICIAN Internal Medicine | DX: L97.412 Non-pressure chronic ulcer of right heel and midfoot with fat layer exposed (principal); I73.9 Peripheral vascular disease, unspecified; I87.2 Venous insufficiency (chronic) (peripheral); I48.0 Paroxysmal atrial fibrillation; N18.31 Chronic kidney disease, stage 3a | CPT/HCPCS: 29581; 99213 ==

== ENCOUNTER → 2024-07-20 14:30 | Outpatient (REF) | payer OTHER, SELFPAY | LOC: WOUND 14:30 | PROVIDERS: ATTENDING PHYSICIAN Surgery; FAMILY PHYSICIAN Internal Medicine | DX: L97.412 Non-pressure chronic ulcer of right heel and midfoot with fat layer exposed (principal); I73.9 Peripheral vascular disease, unspecified; I87.2 Venous insufficiency (chronic) (peripheral); I48.0 Paroxysmal atrial fibrillation; N18.31 Chronic kidney disease, stage 3a | CPT/HCPCS: 97597 ==

== ENCOUNTER → 2024-07-23 13:42 | Outpatient (REF) | payer OTHER, SELFPAY | LOC: RAD 13:42 | PROVIDERS: ATTENDING PHYSICIAN Surgery Vascular Surgery | DX: I73.9 Peripheral vascular disease, unspecified (principal) | CPT/HCPCS: 93971 ==

== ENCOUNTER → 2024-07-23 14:13 | Outpatient (REF) | payer OTHER, SELFPAY | LOC: WOUND 14:13 | PROVIDERS: ATTENDING PHYSICIAN Surgery; FAMILY PHYSICIAN Internal Medicine | DX: L97.412 Non-pressure chronic ulcer of right heel and midfoot with fat layer exposed (principal); I73.9 Peripheral vascular disease, unspecified; I87.2 Venous insufficiency (chronic) (peripheral); I48.0 Paroxysmal atrial fibrillation; N18.31 Chronic kidney disease, stage 3a | CPT/HCPCS: 29581 ==

== ENCOUNTER → 2024-07-27 14:29 | Outpatient (REF) | payer OTHER, SELFPAY | LOC: WOUND 14:29 | PROVIDERS: ATTENDING PHYSICIAN Surgery; FAMILY PHYSICIAN Internal Medicine | DX: L97.412 Non-pressure chronic ulcer of right heel and midfoot with fat layer exposed (principal); I73.9 Peripheral vascular disease, unspecified; I87.2 Venous insufficiency (chronic) (peripheral); I48.0 Paroxysmal atrial fibrillation; N18.31 Chronic kidney disease, stage 3a | CPT/HCPCS: 11042 ==

== ENCOUNTER → 2024-08-04 14:28 | Outpatient (REF) | payer OTHER, SELFPAY | LOC: WOUND 14:28 | PROVIDERS: ATTENDING PHYSICIAN Surgery; FAMILY PHYSICIAN Internal Medicine | DX: L97.412 Non-pressure chronic ulcer of right heel and midfoot with fat layer exposed (principal); I73.9 Peripheral vascular disease, unspecified; I87.2 Venous insufficiency (chronic) (peripheral); I48.0 Paroxysmal atrial fibrillation; N18.31 Chronic kidney disease, stage 3a | CPT/HCPCS: 97597 ==

== ENCOUNTER → 2024-08-11 14:21 | Outpatient (REF) | payer OTHER, SELFPAY | LOC: WOUND 14:21 | PROVIDERS: ATTENDING PHYSICIAN Surgery; FAMILY PHYSICIAN Internal Medicine | DX: L97.412 Non-pressure chronic ulcer of right heel and midfoot with fat layer exposed (principal); I73.9 Peripheral vascular disease, unspecified; I87.2 Venous insufficiency (chronic) (peripheral); I48.0 Paroxysmal atrial fibrillation; N18.31 Chronic kidney disease, stage 3a | CPT/HCPCS: 11042 ==

== ENCOUNTER → 2024-08-18 14:02 | Outpatient (REF) | payer OTHER, SELFPAY | LOC: WOUND 14:02 | PROVIDERS: ATTENDING PHYSICIAN Surgery; FAMILY PHYSICIAN Internal Medicine | DX: L97.412 Non-pressure chronic ulcer of right heel and midfoot with fat layer exposed (principal); I73.9 Peripheral vascular disease, unspecified; I87.2 Venous insufficiency (chronic) (peripheral); I48.0 Paroxysmal atrial fibrillation; N18.31 Chronic kidney disease, stage 3a | CPT/HCPCS: 97597 ==

== ENCOUNTER → 2024-08-25 14:40 | Outpatient (REF) | payer OTHER, SELFPAY | LOC: WOUND 14:40 | PROVIDERS: ATTENDING PHYSICIAN Surgery; FAMILY PHYSICIAN Internal Medicine | DX: L97.412 Non-pressure chronic ulcer of right heel and midfoot with fat layer exposed (principal); L97.521 Non-pressure chronic ulcer of other part of left foot limited to breakdown of skin; I73.9 Peripheral vascular disease, unspecified; I87.2 Venous insufficiency (chronic) (peripheral); I48.0 Paroxysmal atrial fibrillation; N18.31 Chronic kidney disease, stage 3a | CPT/HCPCS: 97597 ==

== ENCOUNTER → 2024-08-31 14:18 | Outpatient (REF) | payer OTHER, SELFPAY | LOC: WOUND 14:18 | PROVIDERS: ATTENDING PHYSICIAN Surgery; FAMILY PHYSICIAN Internal Medicine | DX: L97.412 Non-pressure chronic ulcer of right heel and midfoot with fat layer exposed (principal); L97.521 Non-pressure chronic ulcer of other part of left foot limited to breakdown of skin; I73.9 Peripheral vascular disease, unspecified; I87.2 Venous insufficiency (chronic) (peripheral); I48.0 Paroxysmal atrial fibrillation; N18.31 Chronic kidney disease, stage 3a | CPT/HCPCS: 97597 ==

== ENCOUNTER → 2024-09-08 13:56 | Outpatient (REF) | payer OTHER, SELFPAY | LOC: WOUND 13:56 | PROVIDERS: ATTENDING PHYSICIAN Surgery; FAMILY PHYSICIAN Internal Medicine | DX: L97.412 Non-pressure chronic ulcer of right heel and midfoot with fat layer exposed (principal); I73.9 Peripheral vascular disease, unspecified; I87.2 Venous insufficiency (chronic) (peripheral); I48.0 Paroxysmal atrial fibrillation; N18.31 Chronic kidney disease, stage 3a | CPT/HCPCS: 99213 ==

== ENCOUNTER → 2024-09-14 14:04 | Outpatient (REF) | payer OTHER, SELFPAY | LOC: WOUND 14:04 | PROVIDERS: ATTENDING PHYSICIAN Surgery; FAMILY PHYSICIAN Internal Medicine | DX: L97.412 Non-pressure chronic ulcer of right heel and midfoot with fat layer exposed (principal); I73.9 Peripheral vascular disease, unspecified; I87.2 Venous insufficiency (chronic) (peripheral); I48.0 Paroxysmal atrial fibrillation; N18.31 Chronic kidney disease, stage 3a | CPT/HCPCS: 97597 ==

== ENCOUNTER → 2024-09-28 14:08 | Outpatient (REF) | payer OTHER, SELFPAY | LOC: WOUND 14:08 | PROVIDERS: ATTENDING PHYSICIAN Surgery; FAMILY PHYSICIAN Internal Medicine | DX: L97.412 Non-pressure chronic ulcer of right heel and midfoot with fat layer exposed (principal); I73.9 Peripheral vascular disease, unspecified; I87.2 Venous insufficiency (chronic) (peripheral); I48.0 Paroxysmal atrial fibrillation; N18.31 Chronic kidney disease, stage 3a | CPT/HCPCS: 99213 ==

== ENCOUNTER → 2024-10-12 13:56 | Outpatient (REF) | payer OTHER, SELFPAY | LOC: WOUND 13:56 | PROVIDERS: ATTENDING PHYSICIAN Surgery; FAMILY PHYSICIAN Internal Medicine | DX: L97.412 Non-pressure chronic ulcer of right heel and midfoot with fat layer exposed (principal); I73.9 Peripheral vascular disease, unspecified; I87.2 Venous insufficiency (chronic) (peripheral); I48.0 Paroxysmal atrial fibrillation; N18.31 Chronic kidney disease, stage 3a | CPT/HCPCS: 99213 ==

== ENCOUNTER → 2024-10-27 14:23 | Outpatient (REF) | payer OTHER, SELFPAY | LOC: RAD 14:23 | PROVIDERS: ATTENDING PHYSICIAN Surgery Vascular Surgery; FAMILY PHYSICIAN Internal Medicine | DX: I87.2 Venous insufficiency (chronic) (peripheral) (principal); I73.9 Peripheral vascular disease, unspecified | CPT/HCPCS: 93922; 93971 ==

== ENCOUNTER → 2024-10-29 14:23 | Outpatient (REF) | payer OTHER, SELFPAY | LOC: WOUND 14:23 | PROVIDERS: ATTENDING PHYSICIAN Surgery; FAMILY PHYSICIAN Internal Medicine | DX: L97.412 Non-pressure chronic ulcer of right heel and midfoot with fat layer exposed (principal); I73.9 Peripheral vascular disease, unspecified; I87.2 Venous insufficiency (chronic) (peripheral); I48.0 Paroxysmal atrial fibrillation; N18.31 Chronic kidney disease, stage 3a | CPT/HCPCS: 99213 ==

== ENCOUNTER → 2024-11-09 14:18 | Outpatient (REF) | payer OTHER, SELFPAY | LOC: WOUND 14:18 | PROVIDERS: ATTENDING PHYSICIAN Surgery; FAMILY PHYSICIAN Internal Medicine | DX: L97.412 Non-pressure chronic ulcer of right heel and midfoot with fat layer exposed (principal); I73.9 Peripheral vascular disease, unspecified; I87.2 Venous insufficiency (chronic) (peripheral); I48.0 Paroxysmal atrial fibrillation; N18.31 Chronic kidney disease, stage 3a | CPT/HCPCS: 11042 ==

== ENCOUNTER → 2024-12-08 14:11 | Outpatient (REF) | payer OTHER, SELFPAY | LOC: WOUND 14:11 | PROVIDERS: ATTENDING PHYSICIAN Surgery; FAMILY PHYSICIAN Internal Medicine | DX: L97.412 Non-pressure chronic ulcer of right heel and midfoot with fat layer exposed (principal); I73.9 Peripheral vascular disease, unspecified; I87.2 Venous insufficiency (chronic) (peripheral); I48.0 Paroxysmal atrial fibrillation; N18.31 Chronic kidney disease, stage 3a | CPT/HCPCS: 11042 ==

== ENCOUNTER → 2025-01-08 13:35 | Outpatient (REF) | payer OTHER, SELFPAY | LOC: WOUND 13:35 | PROVIDERS: ATTENDING PHYSICIAN Surgery; FAMILY PHYSICIAN Internal Medicine | DX: L97.412 Non-pressure chronic ulcer of right heel and midfoot with fat layer exposed (principal); I73.9 Peripheral vascular disease, unspecified; I87.2 Venous insufficiency (chronic) (peripheral); I48.0 Paroxysmal atrial fibrillation; N18.31 Chronic kidney disease, stage 3a | CPT/HCPCS: 99213 ==

== ENCOUNTER → 2025-01-19 14:46 | Outpatient (REF) | payer OTHER, SELFPAY | LOC: WOUND 14:46 | PROVIDERS: ATTENDING PHYSICIAN Surgery; FAMILY PHYSICIAN Internal Medicine | DX: L97.412 Non-pressure chronic ulcer of right heel and midfoot with fat layer exposed (principal); I73.9 Peripheral vascular disease, unspecified; I87.2 Venous insufficiency (chronic) (peripheral); I48.0 Paroxysmal atrial fibrillation; N18.31 Chronic kidney disease, stage 3a | CPT/HCPCS: 99213 ==

== ENCOUNTER 2025-02-11 14:23 | Outpatient (REF) | payer OTHER, SELFPAY | END 2025-02-11 23:59 | disposition home or self-care (01) | LOC: WOUND 14:23 | PROVIDERS: ATTENDING PHYSICIAN Surgery; FAMILY PHYSICIAN Internal Medicine | DX: L97.412 Non-pressure chronic ulcer of right heel and midfoot with fat layer exposed (principal); I73.9 Peripheral vascular disease, unspecified; I87.2 Venous insufficiency (chronic) (peripheral); I48.0 Paroxysmal atrial fibrillation; N18.31 Chronic kidney disease, stage 3a | CPT/HCPCS: 99212 ==